=== PATIENT | male | born 1990 | race African-American/Black ===

== ENCOUNTER 2016-12-14 19:34 | Emergency (ER) | payer MEDICAID ==
[~2016-12-14] VITALS: Ht 170.2 cm; Wt 109.0 kg
[2016-12-14 23:42] VITALS: BP 114/78
== END 2016-12-14 23:43 | disposition home or self-care (01) ==
LOC: ER 23:43
DX: J45.909 Unspecified asthma, uncomplicated (principal)
CPT/HCPCS: 99283

== ENCOUNTER 2017-04-22 03:21 | Emergency (ER) | payer MEDICAID ==
[~2017-04-22] VITALS: Ht 170.2 cm; Wt 113.0 kg
[2017-04-22] MEDS ORDERED: METHOCARBAMOL 500MG TABLET PO ONE (04:45)
[2017-04-22] MEDS ORDERED: IBUPROFEN 600MG TABLET PO ONE (04:45)
[2017-04-22 06:30] VITALS: BP 132/89
== END 2017-04-22 06:30 | disposition home or self-care (01) ==
LOC: ER 03:21
DX: M54.2 Cervicalgia (principal); M54.9 Dorsalgia, unspecified; R07.9 Chest pain, unspecified; R51 Headache; J45.909 Unspecified asthma, uncomplicated; F12.10 Cannabis abuse, uncomplicated
CPT/HCPCS: 72040; 93005; 99284

== ENCOUNTER 2018-06-02 09:58 | Emergency (ER) | payer MEDICAID ==
[~2018-06-02] VITALS: Ht 170.2 cm; Wt 113.0 kg
[2018-06-02 10:43] VITALS: BP 143/84
== END 2018-06-02 19:30 | disposition left against medical advice (07) ==
LOC: ER 10:07
DX: Z53.21 Procedure and treatment not carried out due to patient leaving prior to being seen by health care provider (principal); J45.909 Unspecified asthma, uncomplicated